=== PATIENT | female | born 1990 | race Caucasian/White ===

== ENCOUNTER 2017-04-24 02:07 | Emergency (ER) | payer OTHER ==
[~2017-04-24] VITALS: Ht 162.6 cm; Wt 63.6 kg
[2017-04-24 02:10] VITALS: BP 135/92; TEMP 97.9
[2017-04-24] MEDS ORDERED: AMOXICILLIN 8751 TAB PO (02:46)
[2017-04-24 02:55] VITALS: PULSE 80
== END 2017-04-24 02:55 | disposition home or self-care (01) ==
LOC: COL.ER 02:07
DX: S60.572A Other superficial bite of hand of left hand, initial encounter (principal); W55.01XA Bitten by cat, initial encounter